=== PATIENT | male | born 1965 | race African-American/Black ===

== ENCOUNTER 2025-06-20 09:01 | Outpatient (CLI) | payer MEDICARE | END 2025-06-20 09:02 | disposition home or self-care (01) | LOC: CSHWCC 09:01 | PROVIDERS: ATTEND Nurse Practitioner Family | DX: E11.621 Type 2 diabetes mellitus with foot ulcer (principal); L97.512 Non-pressure chronic ulcer of other part of right foot with fat layer exposed; Z89.411 Acquired absence of right great toe | CPT/HCPCS: 11042; G0463; 99213 ==

== ENCOUNTER 2025-06-24 11:02 | Outpatient (CLI) | payer MEDICARE | END 2025-06-24 11:03 | disposition home or self-care (01) | LOC: CSHWCC 11:02 | PROVIDERS: ATTEND Nurse Practitioner Family | DX: E11.621 Type 2 diabetes mellitus with foot ulcer (principal); L97.512 Non-pressure chronic ulcer of other part of right foot with fat layer exposed; Z89.411 Acquired absence of right great toe | CPT/HCPCS: 29445 ==

== ENCOUNTER 2025-07-01 10:30 | Outpatient (CLI) | payer MEDICARE | END 2025-07-01 10:31 | disposition home or self-care (01) | LOC: CSHWCC 10:30 | PROVIDERS: ATTEND Nurse Practitioner Family | DX: E11.621 Type 2 diabetes mellitus with foot ulcer (principal); L97.512 Non-pressure chronic ulcer of other part of right foot with fat layer exposed; Z89.411 Acquired absence of right great toe | CPT/HCPCS: 11042 ==

== ENCOUNTER 2025-07-08 09:37 | Outpatient (CLI) | payer MEDICARE | END 2025-07-08 09:38 | disposition home or self-care (01) | LOC: CSHWCC 09:37 | PROVIDERS: ATTEND Nurse Practitioner Family | DX: E11.621 Type 2 diabetes mellitus with foot ulcer (principal); L97.512 Non-pressure chronic ulcer of other part of right foot with fat layer exposed; Z89.411 Acquired absence of right great toe ==

== ENCOUNTER 2025-07-24 09:53 | Outpatient (CLI) | payer MEDICARE | END 2025-07-24 09:54 | disposition home or self-care (01) | LOC: CSHWCC 09:53 | PROVIDERS: ATTEND Nurse Practitioner Family | DX: E11.621 Type 2 diabetes mellitus with foot ulcer (principal); L97.512 Non-pressure chronic ulcer of other part of right foot with fat layer exposed; L08.9 Local infection of the skin and subcutaneous tissue, unspecified; Z89.411 Acquired absence of right great toe ==

== ENCOUNTER 2025-07-24 10:00 | Outpatient (CLI) | payer MEDICARE | END 2025-07-24 10:01 | disposition home or self-care (01) | LOC: CSHWCC 10:00 | PROVIDERS: ATTEND Nurse Practitioner Family | DX: E11.621 Type 2 diabetes mellitus with foot ulcer (principal); L97.512 Non-pressure chronic ulcer of other part of right foot with fat layer exposed; L08.9 Local infection of the skin and subcutaneous tissue, unspecified; Z89.411 Acquired absence of right great toe | CPT/HCPCS: 11042; 99212; G0463 ==

== ENCOUNTER 2025-07-26 10:12 | Outpatient (CLI) | payer MEDICARE | END 2025-07-26 10:13 | disposition home or self-care (01) | LOC: CSHWCC 10:12 | PROVIDERS: ATTEND Nurse Practitioner Family | DX: E11.621 Type 2 diabetes mellitus with foot ulcer (principal); L97.512 Non-pressure chronic ulcer of other part of right foot with fat layer exposed; L08.9 Local infection of the skin and subcutaneous tissue, unspecified; Z89.411 Acquired absence of right great toe | CPT/HCPCS: 29445 ==

== ENCOUNTER 2025-08-02 10:39 | Outpatient (CLI) | payer MEDICARE | END 2025-08-02 10:40 | disposition home or self-care (01) | LOC: CSHWCC 10:39 | PROVIDERS: ATTEND Nurse Practitioner Family | DX: E11.621 Type 2 diabetes mellitus with foot ulcer (principal); L97.512 Non-pressure chronic ulcer of other part of right foot with fat layer exposed; L08.9 Local infection of the skin and subcutaneous tissue, unspecified; Z89.411 Acquired absence of right great toe | CPT/HCPCS: 11042 ==

== ENCOUNTER 2025-08-07 09:47 | Outpatient (CLI) | payer MEDICARE | END 2025-08-07 09:48 | disposition home or self-care (01) | LOC: CSHWCC 09:47 | PROVIDERS: ATTEND Nurse Practitioner Family | DX: E11.621 Type 2 diabetes mellitus with foot ulcer (principal); L97.512 Non-pressure chronic ulcer of other part of right foot with fat layer exposed; L08.9 Local infection of the skin and subcutaneous tissue, unspecified; Z89.411 Acquired absence of right great toe | CPT/HCPCS: 11042 ==

== ENCOUNTER 2025-08-14 10:05 | Outpatient (CLI) | payer MEDICARE | END 2025-08-14 10:06 | disposition home or self-care (01) | LOC: CSHWCC 10:05 | PROVIDERS: ATTEND Nurse Practitioner Family | DX: E11.621 Type 2 diabetes mellitus with foot ulcer (principal); L97.512 Non-pressure chronic ulcer of other part of right foot with fat layer exposed; L08.9 Local infection of the skin and subcutaneous tissue, unspecified; Z89.411 Acquired absence of right great toe | CPT/HCPCS: 11042 ==

== ENCOUNTER 2025-08-28 10:54 | Outpatient (CLI) | payer MEDICARE | END 2025-08-28 10:55 | disposition home or self-care (01) | LOC: CSHWCC 10:54 | PROVIDERS: ATTEND Nurse Practitioner Family | DX: E11.621 Type 2 diabetes mellitus with foot ulcer (principal); L97.512 Non-pressure chronic ulcer of other part of right foot with fat layer exposed; L08.9 Local infection of the skin and subcutaneous tissue, unspecified; Z89.411 Acquired absence of right great toe | CPT/HCPCS: 11042; G0463; 99212 ==

== ENCOUNTER 2025-09-25 10:04 | Outpatient (CLI) | payer MEDICARE | END 2025-09-25 10:05 | disposition home or self-care (01) | LOC: CSHWCC 10:04 | PROVIDERS: ATTEND Nurse Practitioner Family | DX: E11.621 Type 2 diabetes mellitus with foot ulcer (principal); L97.512 Non-pressure chronic ulcer of other part of right foot with fat layer exposed; Z89.411 Acquired absence of right great toe | CPT/HCPCS: 11042 ==

== ENCOUNTER 2025-10-02 09:43 | Outpatient (CLI) | payer MEDICARE | END 2025-10-02 09:44 | disposition home or self-care (01) | LOC: CSHWCC 09:43 | PROVIDERS: ATTEND Nurse Practitioner Family | DX: E11.621 Type 2 diabetes mellitus with foot ulcer (principal); L97.512 Non-pressure chronic ulcer of other part of right foot with fat layer exposed; Z89.411 Acquired absence of right great toe | CPT/HCPCS: 11042 ==

== ENCOUNTER 2025-10-16 09:44 | Outpatient (CLI) | payer MEDICARE | END 2025-10-16 09:45 | disposition home or self-care (01) | LOC: CSHWCC 09:44 | PROVIDERS: ATTEND Nurse Practitioner Family | DX: E11.621 Type 2 diabetes mellitus with foot ulcer (principal); L97.512 Non-pressure chronic ulcer of other part of right foot with fat layer exposed; Z89.411 Acquired absence of right great toe | CPT/HCPCS: 11042 ==

== ENCOUNTER 2025-10-23 09:45 | Outpatient (CLI) | payer MEDICARE | END 2025-10-23 09:46 | disposition home or self-care (01) | LOC: CSHWCC 09:45 | PROVIDERS: ATTEND Nurse Practitioner Family | DX: E11.621 Type 2 diabetes mellitus with foot ulcer (principal); L97.512 Non-pressure chronic ulcer of other part of right foot with fat layer exposed; Z89.411 Acquired absence of right great toe | CPT/HCPCS: 97597 ==

== ENCOUNTER 2025-10-30 09:53 | Outpatient (CLI) | payer MEDICARE | END 2025-10-30 09:54 | disposition home or self-care (01) | LOC: CSHWCC 09:53 | PROVIDERS: ATTEND Nurse Practitioner Family | DX: E11.621 Type 2 diabetes mellitus with foot ulcer (principal); L97.512 Non-pressure chronic ulcer of other part of right foot with fat layer exposed; Z89.411 Acquired absence of right great toe | CPT/HCPCS: 11042; G0463; 99213 ==